=== PATIENT | male | born 1950 | race Caucasian/White ===

== ENCOUNTER 2017-11-10 18:20 | Emergency (ER) | payer BC ==
[2017-11-10] MEDS: LIDOCAINE VISCOUS 2% SOLN 15 ML UDC PO (19:13)
[2017-11-10] MEDS ORDERED: SODIUM CHLORIDE 0.9% FLUSH 10 ML FLUSH IVF (19:30)
[2017-11-10] MEDS: ALUMINUM/MAGNESIUM/SIMETH 30 ML CUP PO (19:45)
[2017-11-10] MEDS: diphenhydrAMINE HCL 50 MG/ML VIAL IV PUSH (19:49)
[2017-11-10] MEDS: PROCHLORPERAZINE INJ 10 MG/2 ML VIAL IV PUSH (19:49)
[2017-11-10 20:00] LABS: CHLORIDE 103 MEQ/L (98-107); POTASSIUM 4.1 MEQ/L (3.5-5.1); SODIUM (NA) 137 MEQ/L (136-145)
[2017-11-10 20:03] LABS: ANION GAP 7 MEQ/L (5-15); AUTOMATED NEUTROPHIL # 6.9 TH/MM3 (1.8-7.7); BASOPHIL # 0.1 TH/MM3 (0-0.2); BASOPHIL % 1.5 % (0.0-2.0); BICARBONATE 26.8 MEQ/L (21.0-32.0); BLOOD UREA NITROGEN 17 MG/DL (7-18); CALCIUM 9.4 MG/DL (8.5-10.1); EOSINOPHIL # 0.2 TH/MM3 (0-0.4); GLUCOSE,RANDOM 104 MG/DL (74-106); HEMATOCRIT 41.3 % (39.0-51.0); HEMOGLOBIN 13.6 GM/DL (13.0-17.0); LYMPH % 13.1 % (9.0-44.0); LYMPHOCYTE # 1.1 TH/MM3 (1.0-4.8); MEAN CELL VOLUME 90.8 FL (80.0-100.0); MEAN CORPUSCULAR HGB CONC 33.1 % (32.0-36.0); MEAN PLATELET VOLUME 9.9 FL (7.0-11.0); MONO % 4.3 % (0.0-8.0); MONOCYTE # 0.4 TH/MM3 (0-0.9); NEUT % 79.1 % (16.0-70.0); PLATELET COUNT 182 TH/MM3 (150-450); RED BLOOD COUNT 4.55 MIL/MM3 (4.50-5.90); RED CELL DISTRIBUTION WIDTH 11.8 % (11.6-17.2); WHITE BLOOD COUNT 8.7 TH/MM3 (4.0-11.0)
[2017-11-10 20:06] LABS: CREATININE 0.87 MG/DL (0.60-1.30); GLOMERULAR FILTRATION RATE 88 ML/MIN (>89); HEMO FLAGS DIFF FINAL
[2017-11-10] MEDS: IOHEXOL 350 MG/ML 10 ML VIAL (for RAD DIAG) IVCONTRAST (20:20)
== END 2017-11-10 21:24 | disposition home or self-care (01) ==
LOC: PHED 18:20
DX: K22.9 Disease of esophagus, unspecified (principal)
CPT/HCPCS: 70491; 71045; 80048; 85025; 96374; 96375; 99284-25

== ENCOUNTER → 2017-11-11 | Emergency (ER) | payer MEDICARE, BC ==
[~2017-11-11] VITALS: Ht 175.3 cm; Wt 102.2 kg
[~2017-11-11] MED LIST: CHLORHEXIDINE GLUCONATE 2 % 1 PACK (2 CLOTHS) TOPICAL PRN; DILA30CA PO; GAVISUS2 PO; LACTATED RINGER'S 1000 ML IV PRN; METOCLOPRAMIDE HCL 10 MG/2 ML VIAL IV PUSH ONE; METOPROLOL TARTRATE 25 MG TAB PO PRN; POVIDONE IODINE 5% (ANTISEPSIS KIT) 4 APPLICATIONS EACH NARE PRN; ROSU5 PO; SCOP1PAT2 T-DERMAL; SODIUM CHLORID 0.9% 500 ML IV PRN; [UNRECOGNIZED DRUG - CODE] PO
[2017-11-11 20:48] VITALS: BP 177/86; PULSE 93; RESP 18; TEMP 98.8; O2SAT 98
--- NOTE | 2017-11-11 21:24 | PD ---
HPI Chief Complaint: Abdominal Pain Time Seen by Provider: 21:05 Travel History International Travel<30 days: No Contact w/Intl Traveler<30days: No Traveled to known affect area: No History of Present Illness HPI 66-year-old male with cerebral palsy presents to the emergency department by private transportation in the care of his mother for evaluation of inability to swallow his own saliva. Patient has history of esophageal stricture and has required upper endoscopy with esophageal dilatation times four the past. Patient is visiting from [place]. Patient is here for 3 months. Patient does not have a local primary care provider. Patient states yesterday afternoon around 4 PM he was eating a chicken sandwich and coleslaw and during that process of eating felt as if he had something lodged in his esophagus and went to the bathroom and vomited a large amount of food. Patient subsequently continued to feel sensation of retained food bolus in the mid chest area and vomited large amount of chicken reportedly. Patient subsequently continued to have issues with this sensation of retained foreign body esophageal foreign body and difficulty swallowing his own saliva. Patient came to the emergency room and reportedly he was assessed with lab work chest x-ray and CT of the soft tissue of the neck. Patient was reportedly able to tolerate a GI cocktail and was discharged with prescription for scopolamine patch and Zofran. Patient states that he continued to have vomiting and inability to tolerate and manage his own oral secretions overnight, has had ongoing discomfort/pressure, and as he was visiting from out of town tried to fill the prescriptions today but continued to have issues all day and finally returns to the emergency department at this time for inability to swallow oral secretions. Patient has history of cerebral palsy, seizure disorder, and dyslipidemia. Patient was able to take his 2 tablets of Dilantin this morning at 8 AM as well as his 1 tablet of Dilantin at 4 PM he states he did not vomit these and these were able to stay down to his knowledge as he has not seen any pill fragments. [facility] Past Medical History Narrative Medical Cerebral palsy, seizure, dyslipidemia, arthritis, esophageal stricture; endoscopy; no tobacco use: Nursing notes reviewed Gastrointestinal Disorders: Yes (throat stretched x4, ) Seizures: Yes ?: Not Social History Alcohol Use: Yes (occ) Tobacco Use: No Allergies-Medications (Allergen,Severity, Reaction): Coded Allergies: No Known Allergies (Unverified , 11/11/17) Reported Meds & Prescriptions Reported Meds & Active Scripts Active Scopolamine Patch 72 HR (Scopolamine) 1 Mg Patch 1 Patch T-DERMAL Q72H Gaviscon Extra Strength R Liq (Aluminum Hydroxide-Mag Carb Liq) 508-475 Mg/10 Ml Susp 10-20 Ml PO QID PRN 7 Days Maximum 80 mL/24 hrs. Reported Crestor (Rosuvastatin Calcium) 5 Mg Tab 5 Mg PO HS Lodine (Etodolac) 400 Mg Tab 400 Mg PO BID Dilantin (Phenytoin Extended) 30 Mg Cap 30 Mg PO TID Review of Systems Except as stated in HPI: all other systems reviewed are Neg General / Constitutional: No: Fever, Chills HENT: No: Congestion Cardiovascular: Positive: Chest Pain or Discomfort Respiratory: No: Shortness of Breath Gastrointestinal: Positive: Nausea, Vomiting, No: Abdominal Pain Genitourinary: No: Decreased Urinary Output Musculoskeletal: No: Myalgias Skin: No Rash Neurologic: Positive: Focal Abnormalities (cerebral palsy), No: Weakness Psychiatric: No: Anxiety Hematologic/Lymphatic: No: Lymph Node Enlargement Physical Exam Narrative GENERAL: Well-developed male in no acute respiratory distress intermittently spitting and drooling oral secretions; no respiratory distress, no stridor or hoarseness, no choking. SKIN: Warm and dry. HEAD: Normocephalic. EYES: No scleral icterus. No injection or drainage. ENT: Mucous membranes moist saliva noted in oral cavity; airway is patent NECK: Supple, trachea midline. No JVD or lymphadenopathy. CARDIOVASCULAR: Regular rate and rhythm without murmurs, gallops, or rubs. RESPIRATORY: Breath sounds equal bilaterally. No accessory muscle use. GASTROINTESTINAL: Abdomen soft, non-tender, nondistended. MUSCULOSKELETAL: No cyanosis, or edema. Contracture left upper extremity. BACK: Nontender without obvious deformity. No CVA tenderness. Data Data Last Documented VS Vital Signs Date Time Temp Pulse Resp B/P (MAP) Pulse Ox O2 Delivery O2 Flow Rate FiO2 11/11/17 21:11 18 11/11/17 20:48 98.8 93 177/86 (116) 98 Orders Orders ^ Saline Lock (11/11/17 21:05) Metoclopramide Inj (Reglan Inj) (11/11/17 21:15) Phenytoin (Dilantin) (11/11/17 21:05) Electrocardiogram (11/11/17 ) Labs Laboratory Tests Test 11/11/17 21:20 Phenytoin (Dilantin) Level 12.4 MCG/ML MDM Medical Decision Making Medical Screen Exam Complete: Yes Emergency Medical Condition: Yes Medical Record Reviewed: Yes Differential Diagnosis Esophageal stricture, retained esophageal foreign body, esophageal spasm Narrative Course IV access obtained; in suction made available to patient as well as emesis bag; patient given Reglan 10 mg IV times one dose; lab values collected yesterday however not Dilantin level, therefore specimen checked at this time. Call placed to GI demolition engineer. @ 21:23 call back from GI -- will be in to [facility] [address] to perform endoscopy here. @ 22:[address] to endoscopy; EKG sinus rhythm no acute ST elevation or injury pattern or ectopy noted. Physician Communication Physician Communication @ [id number] call placed to GI -- discussed with Dr Loyd --send now to [facility] to endoscopy Diagnosis Primary Impression: Food impaction of esophagus Additional Impression: History of esophageal stricture Abby Cleveland MD Nov 11, 2017 21:24
[2017-11-11 22:18] VITALS: BP 169/84; PULSE 88; RESP 18; O2SAT 97
[2017-11-11 22:19] VITALS: BP 169/84; PULSE 89; RESP 18; TEMP 98.8; O2SAT 97
--- NOTE | 2017-11-11 23:04 | PD.CONS ---
HPI History of Present Illness This is a 66 year old male who presents to the ER with complaints of inability to swallow his own secretions apparently he ate a chicken sandwich yesterday and subsequently had some issues with chest pain and inability to swallow he presented to the emergency room at which time he had felt better with no pain and he tolerated the secretions and so he was discharged only to have further problems throughout the day in fact even getting worse as the day went on and now he can't even tolerate his secretions the patient has a history of cerebral palsy and presents with his mother who takes care of him [facility] Past Medical History History of esophageal stricture and food bolus impactions, history of cerebral palsy also has a history of seizure disorder and hyperlipidemia Past Surgical History Patient reports for endoscopies in the past Coded Allergies: No Known Allergies (Unverified , 11/11/17) Medications Patient takes Crestor and Dilantin Family History Noncontributory Social History None Review of Systems Review of systems Patient denies any headache dizziness blurry vision, denies any chest pain shortness of breath cough fever chills, Denies any palpitations or fatigue denies any polyuria dysuria hematuria, denies any numbness tingling or weakness, denies any skin rash pruritus or jaundice, denies any easy bruising or bleeding tendency, denies any recent change in mood GI Exam Vitals I&O Vital Signs Date Time Temp Pulse Resp B/P (MAP) Pulse Ox O2 Delivery O2 Flow Rate FiO2 11/11/17 22:19 89 18 97 11/11/17 22:19 98.8 89 18 169/84 (112) 97 11/11/17 22:18 88 18 169/84 (112) 97 Room Air 11/11/17 21:11 18 11/11/17 20:48 98.8 93 18 177/86 (116) 98 Laboratory Test 11/11/17 21:20 Phenytoin (Dilantin) Level 12.4 MCG/ML Physical Examination HEENT: Pupils round and reactive to light; normocephalic; atraumatic; no jaundice. Throat is clear. NECK: Neck is supple, no JVD, no lymphadenopathy. CHEST: Chest is clear to auscultation and percussion. CARDIAC: Regular rate and rhythm with no murmur gallop or rubs. ABDOMEN: Soft, nondistended, nontender; no hepatosplenomegaly; bowel sounds are present in all four quadrants. EXTREMITIES: No clubbing, cyanosis, or edema. SKIN: Normal; no rash; no jaundice. PHOTOGRAPHIC PROCESS SCREEN MAKER: No focal deficits; Assessment and Plan Plan Patient unable to tolerate his own secretions he probably has a food bolus impaction We will proceed with an upper endoscopy Further recommendations shall depend on the findings Anatoliy Fernandez MD Nov 11, 2017 23:04
--- NOTE | 2017-11-11 23:06 | PD.PROCEDR ---
GI Procedure PROCEDURE PERFORMED EGD with food bolus removal and biopsy INDICATION FOR PROCEDURE Food bolus impaction PROCEDURE: The procedure, risks and benefits were discussed with Mr. Angeles and informed consent was obtained. Anesthesia sedated him with Diprivan and he was intubated. He was placed in the left lateral decubitus position. EGD: The Pentax videoscope was introduced through the oropharynx and advanced to the second portion of the duodenum under direct visualization. Retroflexion was performed in the stomach. FINDINGS: The esophagus there was a foreign body obstructing the distal part I used the tripod to soften and loosen this foreign body and finally it passed into the stomach as I flushed away the esophagus there was some distal esophageal mucosal erythema probably from the food bolus impaction this was biopsied I did not pursue a dilation at this point The stomach this appeared to be unremarkable and within normal limits The duodenum this too appeared to be unremarkable normal limits ESTIMATED BLOOD LOSS: None SPECIMENS REMOVED: Esophageal biopsy COMPLICATIONS: None IMPRESSION: Food bolus impaction Esophagitis PLAN: Await biopsies Recommend Prilosec 20 mg daily Recommended EGD in 2-3 months with possible dilation Okay for discharge home Anatoliy Fernandez MD Nov 11, 2017 23:06
[2017-11-11 23:45] VITALS: BP 126/79; PULSE 74; RESP 15; TEMP 98.6; O2SAT 100
--- NOTE | 2017-11-12 19:26 | EKG ---
Date Performed: 11/11/2017 Time Performed: 22:04:28 PTAGE: 66 years EKG: Sinus rhythm MARKED LEFT AXIS DEVIATION PATTERN CONSISTENT WITH PULMONARY DISEASE ABNORMAL ECG NO PREVIOUS TRACING DOCTOR: Edyta Cueva Interpretating Date/Time 11/12/2017 19:24:01
== END | disposition home or self-care (01) ==
LOC: PHED 20:45
DX: T18.128A Food in esophagus causing other injury, initial encounter (principal); K20.9 Esophagitis, unspecified; R07.9 Chest pain, unspecified; G40.909 Epilepsy, unspecified, not intractable, without status epilepticus; E78.5 Hyperlipidemia, unspecified; G80.9 Cerebral palsy, unspecified
CPT/HCPCS: 00731; 43239; 43247; 80185; 88305; 88312; 93005; 96374; 99285; J2765; J7120